=== PATIENT | female | born 2000 | race Caucasian/White ===

== ENCOUNTER 2019-06-28 03:50 | Emergency (ER) | payer BC ==
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
== END 2019-06-28 05:06 | disposition home or self-care (01) ==
LOC: BURERS 03:50
DX: S00.33XA Contusion of nose, initial encounter (principal); S00.81XA Abrasion of other part of head, initial encounter; V89.2XXA Person injured in unspecified motor-vehicle accident, traffic, initial encounter
CPT/HCPCS: 70450; 70486; G0390

== ENCOUNTER 2024-06-28 22:04 | Emergency (ER) | payer SELFPAY ==
[2024-06-28] MEDS ORDERED: Ondansetron ODT 4 MG TAB ONE (22:31)
[2024-06-28] MEDS ORDERED: Ketorolac Tromethamine 30 MG (1 mL) VIAL ONE (22:31)
[2024-06-28 22:56] LABS: Bilirubin Negative (Negative); Blood, Urine Large (Negative); Clarity Clear (Clear); Glucose, Urine (Dipstick) Negative (Negative); Ketone, Urine Negative (Negative); Leukocyte Large (Negative); Nitrite Negative (Negative); Protein, Urine (Dipstick) 30 mg/dL (Neg-Trace); Specific Gravity, Urine 1.015 (1.005-1.030)
[2024-06-28 23:08] LABS: Bacteria/HPF 4+ HPF (None Seen); CAUTI Indications for Culture Dysuria,urgency,freq; Squamous Epithelial 0-3 HPF (0-3)
[2024-06-28 23:09] LABS: Pregnancy Test - Urine (BHCG) Negative (Negative); Pregu Control Background? CLEAR/WHITE (CLR/WHITE); Pregu Control Bar Appear? YES (CONTROL BAR); Specific Gravity 1.015 (1.002-1.036); Urine Culture Reflex Yes Yes
== END 2024-06-28 23:34 | disposition home or self-care (01) ==
LOC: BURERS 22:04
DX: R11.2 Nausea with vomiting, unspecified (principal); N94.6 Dysmenorrhea, unspecified
CPT/HCPCS: 81001; 81025; 87077; 87086; 87186; 96372; 99284; J1885; Q0162